=== PATIENT | male | born 2000 | race Asian ===

== ENCOUNTER 2023-11-15 09:48 | Emergency (ER) | payer OTHER, SELFPAY ==
[2023-11-15 09:51] VITALS: BP 139/91; PULSE 104; RESP 16; TEMP 36.6; O2SAT 100
--- NOTE | 2023-11-15 11:29 | ED.EAR ---
HPI - Ear Problem General Chief complaint: Ear Stated complaint: ear pain right side Time Seen by Provider: 11/15/23 10:56 Source: patient Mode of arrival: ambulatory Limitations: no limitations History of Present Illness HPI Narrative: This is a 22 year old male that presents to the ER for right pain ongoing over the last couple of days. Denies any other associated symptoms. Denies fevers or drainage. Related Data Allergies Allergy/AdvReac Type Severity Reaction Status Date / Time No Known Allergies Allergy Verified 11/15/23 09:50 Review of Systems Review of Systems: CONSTITUTIONAL: Denies fever ENT: Reports otalgia. All systems reviewed & are unremarkable except as noted in HPI and below PMFSH Past Medical History Medical History (Updated 11/15/23 @ 11:33 by Savita Caicedo PA-C) No active medical problems Social History Social History (Updated 11/15/23 @ 11:33 by Savita Caicedo PA-C) Substance use: never Exam Narrative: GENERAL: Well-appearing, well-nourished, and in no acute distress. HEAD: Normocephalic, atraumatic. EYES: EOMI. ENT: Mucous membranes moist. Oropharynx without tonsillar hypertrophy exudate or other lesions. Bilateral TMs pearly pendleton non-bulging. bilateral external auditory canals are normal NECK: Supple. No adenopathy or masses. EXTREMITIES: Normal range of motion. No edema. SKIN: Warm, dry, no rash. NEURO: No focal deficits. Alert and oriented x3. PSYCH: Normal mood and affect Course Course Emergency Course: patient agrees with plan of care Vital Signs Vital signs: Vital Signs Temperature 97.8 F 11/15/23 09:51 Pulse Rate 104 H 11/15/23 09:51 Respiratory Rate 16 11/15/23 09:51 Blood Pressure 139/91 H 11/15/23 09:51 Pulse Oximetry 100 11/15/23 09:51 Temperature 97.8 F 11/15/23 09:51 Pulse Rate 104 H 11/15/23 09:51 Respiratory Rate 16 11/15/23 09:51 Blood Pressure 139/91 H 11/15/23 09:51 Pulse Oximetry 100 11/15/23 09:51 Medical Decision Making MDM Narrative Medical decision making narrative: Patient presents to the emergency department for right ear pain ongoing over the last couple of days. He is afebrile and nontoxic appearing. Exam of the external auditory canal is normal. His TM also appears normal. Patient instructed to take [id number] pain medication as needed and have follow-up with ENT. He was given warnings to return to the ER Differential Diagnosis Differential Diagnosis: otitis media, otitis externa Vital Signs Vital Signs: Vital Signs Temperature 97.8 F 11/15/23 09:51 Pulse Rate 104 H 11/15/23 09:51 Respiratory Rate 16 11/15/23 09:51 Blood Pressure 139/91 H 11/15/23 09:51 Pulse Oximetry 100 11/15/23 09:51 Temperature 97.8 F 11/15/23 09:51 Pulse Rate 104 H 11/15/23 09:51 Respiratory Rate 16 11/15/23 09:51 Blood Pressure 139/91 H 11/15/23 09:51 Pulse Oximetry 100 11/15/23 09:51 Critical Care Time Critical Care Time Critical Care Time: No Discharge Plan Discharge Clinical Impression: Acute pain of right ear Patient Disposition: Home, Self-Care Condition: Stable Instructions: Earache (ED) Additional Instructions: Return to the emergency department if you experience fever, redness and swelling of your ear, abnormal drainage from area, or any other symptoms that are concerning to you Tylenol or ibuprofen as needed for pain Follow-up with ENT Follow-up/Referrals: Isac Minor MD [Physician] - PHYSICIAN,EXCHANGE ADMINISTRATOR [Primary Care Provider] -
== END 2023-11-15 11:54 | disposition home or self-care (01) ==
PROVIDERS: Emergency Provider Physician Assistant; Referring Provider Emergency Medicine
DX: H92.01 Otalgia, right ear (principal)
CPT/HCPCS: 99281